=== PATIENT | female | born 1985 | race American Indian/Alaskan Native ===

== ENCOUNTER 2016-06-26 12:31 | Inpatient (IN) | payer SELFPAY ==
--- NOTE | 2016-06-26 13:01 | Emergency Department Report ---
Chief Complaint: Vaginal Bleeding Stated Complaint: CHEST PAIN/CONSTANT BLEEDING Time Seen by Provider: 06/26/16 12:56 - HPI History of Present Illness: 30-year-old -German female comes in with complaint of vaginal bleeding since 06/02/2016. Patient states she is using approximately a half a pack of tampons 9 tampons probably a day varies. Patient reports that she is passing clots and last Thursday complains of achy all over shortness of breath worse with walking upstairs left-sided chest pain off and on worse with walking. Denies any nausea vomiting as any dysuria. - Exam Vital Signs: Vital Signs 06/26/16 12:35 Temperature 97.4 F L Pulse Rate 100 H Respiratory 22 Rate Blood Pressure 160/95 O2 Sat by Pulse 100 Oximetry Physical Exam: Alert and oriented 3 cardiovascular mildly tachycardic respiratory clear to hospice and bilateral abdomen soft there is just tenderness to the left side of chest. Conjunctivae was pale palms are slightly pale. Gums are within normal limits. MSE screening note: Focused history and physical exam performed. Due to findings the following was ordered: He has been evaluated by this provider in triage. Vaginal bleeding protocol set in place EKGs done. Patient evaluated main ER ED Disposition for MSE Condition: Stable
[2016-06-26 13:21] LABS: Basophils % (Auto) 0.6 % (0.0-1.8); Hematocrit 22.1 % (30.3-42.9); Hemoglobin 6.9 gm/dl (10.1-14.3); Mean Corpuscular HGB Conc 31 % (30-34); Platelet Count 331 K/mm3 (140-440); Red Blood Count 3.79 M/mm3 (3.65-5.03); Red Cell Distribution Width 19.5 % (13.2-15.2); White Blood Count 8.7 K/mm3 (4.5-11.0)
[2016-06-26 13:31] LABS: Mean Corpuscular Hemoglobin 18 pg (28-32); Mean Corpuscular Volume 58 fl (79-97)
[2016-06-26] MEDS ORDERED: NACL 0.9% 500 ML 500 ML IV ONE ×2 (13:51→20:56)
[2016-06-26 14:20] LABS: Bacteria,Urine 1+ /HPF (Negative); Bilirubin,Urine NEG (Negative); Blood,Urine NEG (Negative); Ketones,Urine TR mg/dL (Negative); Leukocyte Esterase,Urine NEG (Negative); Mucus,Urine 2+ /HPF; Nitrite,Urine NEG (Negative)
--- NOTE | 2016-06-26 21:02 | Emergency Department Report ---
ED Female HPI - General Chief complaint: Vaginal Bleeding Stated complaint: CHEST PAIN/CONSTANT BLEEDING Time Seen by Provider: 06/26/16 12:56 Source: patient Mode of arrival: Ambulatory Limitations: No Limitations - History of Present Illness Initial comments: 30-year-old female with a past medical history of obesity, seizures, asthma, and iron deficiency anemia presents to the hospital complains of heavy vaginal bleeding since June 02. Patient using 9 tampons daily and passing clots. The last week patient has had generalized body aches, dyspnea with minimal activity exertion, intermittent left-sided sharp, aching chest pain worse with palpation and movement. Pain rated 5/10 in intensity. Pt denies calf tenderness, edema, recent travel, control use, previous PE/DVT. Patient states she takes iron tablets 3 times a day. No previous history of blood transfusion. [employer]: none - Related Data Allergies Allergy/AdvReac Type Severity Reaction Status Date / Time No Known Allergies Allergy Unverified 06/26/16 12:39 ED Review of Systems ROS: Stated complaint: CHEST PAIN/CONSTANT BLEEDING Other details as noted in HPI Comment: All other systems reviewed and negative Other: Constitutional: No fevers chills Eyes: No eye pain visual changes ENT: No ear pain or throat pain Neck: Denies pain Respiratory: Denies cough wheezing Cardiovascular: Denies palpitations, syncope GI: Denies abdominal pain, nausea, vomiting, diarrhea : Denies dysuria Musculoskeletal: Denies back pain Skin: Denies rash, lesions, erythema Neurologic: Denies headache, numbness, weakness Psychiatric: Denies suicidal ideation, hallucinations ED Past Medical Hx - Past Medical History Hx Seizures: Yes Hx Asthma: Yes Additional medical history: ANEMIA. OBESITY - Surgical History Past Surgical History?: No - Social History Smoking Status: Never Smoker Substance Use Type: Alcohol ED Physical Exam - General Limitations: No Limitations - Other Other exam information: General: No limitations, patient is alert in no acute distress Head exam: Atraumatic, normocephalic Eyes exam: Normal appearance, pupils equal reactive to light, extraocular movements intact ENT: Moist mucous membrane, normal oropharynx Neck exam: Normal inspection, full range of motion, no meningismus nontender Respiratory exam: Clear to auscultation bilateral, no wheezes, rales, crackles Cardiovascular: Normal rate and rhythm, normal heart sounds Abdomen: Soft, nondistended, and nontender, with normal bowel sounds, no rebound, or guarding Extremity: Full range of motion normal inspection no deformity, no calf tenderness or edema Back: Normal Inspection, full range of motion, no tenderness Neurologic: Alert, oriented x3, cranial nerves intact, no motor or sensory deficit Psychiatric: normal affect, normal mood Skin: Warm, dry, intact ED Course Vital Signs 06/26/16 12:35 Temperature 97.4 F L Pulse Rate 100 H Respiratory 22 Rate Blood Pressure 160/95 O2 Sat by Pulse 100 Oximetry - Consultations Consultation #1: 06/26/16 21:12 Dr Peters-Alexander building supervisor consulted. WIll evaluate ED Medical Decision Making - Lab Data Result diagrams: 06/26/16 13:04 - EKG Data -: EKG Interpreted by Me (nsr [id number] ) - EKG Data When compared to previous EKG there are: previous EKG unavailable - Medical Decision Making Patient has reproducible left-sided chest wall tenderness, lack of leg symptoms , no risk factors for PE/DVT therefore PE felt to be less likely cause of shortness of breath and chest pain. Patient has significant anemia which is likely the cause of her symptoms. Blood order to initiate transfusion, ultrasound ordered, [employer] consulted. Patient will need admission to the hospital for further treatment - Differential Diagnosis fibroids, anemia, DUB, costochondritis, PE Critical Care Time: No Critical care attestation.: If time is entered above; I have spent that time in minutes in the direct care of this critically ill patient, excluding procedure time. ED Disposition Clinical Impression: Menorrhagia, Iron (Fe) deficiency anemia, Symptomatic anemia Disposition: OP ADMITTED IP TO THIS HOSP Is pt being admited?: Yes Condition: Stable Time of Disposition: 21:03 (hosp/Dr Venegas)
[2016-06-26] MEDS ORDERED: ZOFRAN IV PRN (22:32)
[2016-06-26] MEDS ORDERED: BENADRYL IV PRN (22:32)
[2016-06-26] MEDS ORDERED: DULCOLAX PR PRN (22:32)
[2016-06-26] MEDS ORDERED: TYLENOL PO PRN (22:32)
[2016-06-26] MEDS ORDERED: MORPHINE IV PRN (22:32)
[2016-06-26] MEDS ORDERED: MILK OF MAGNESIA PO PRN (22:32)
--- NOTE | 2016-06-26 22:40 | Ultrasound Report ---
FINAL REPORT PROCEDURE: US TRANSVAGINAL TECHNIQUE: Real-time transvaginal sonography in multiple planes of the pelvis was performed with image documentation. This examination was performed without Doppler. Vascular abnormalities, including ovarian torsion, will not be detectable without Doppler evaluation. CPT 91915 HISTORY: vag bleeding, significant anemia COMPARISON: No prior studies are available for comparison. FINDINGS: UTERUS Size: 9 x 4 cm. Endometrial thickness: 10 mm. Orientation: anteverted. Cervix: Normal. Fibroids/masses: An isoechoic ill-defined lesion measuring 2.2 x 1.9 centimeters is noted in the anterior fundus. RIGHT Ovary: 3 x 2.1 x 2.2 cm. Appearance: Normal. LEFT Ovary: 4.3 x 3.5 x 4.0 cm. Appearance: A well-defined cystic lesion measuring 4 centimeters is noted. Pelvic fluid: None. Other: None. IMPRESSION: An ill-defined focal lesion measuring 2.2 x 1.9 centimeters in the uterine fundus most likely represents a fibroid. A simple appearing left ovarian cyst is noted measuring 4 centimeters.
--- NOTE | 2016-06-26 22:41 | History and Physical Report ---
History of Present Illness Date of examination: 06/26/16 History of present illness: 30-year-old woman history of menorrhagia comes emergency room complaining of shortness breath, dizziness, palpitation and chest pain. Pain is in the left chest which she describes a sharp, heart pain, intermittent in nature lasting for 25 minutes, worse with activity, intensity 5/10. Patient has had her menstrual period since June 02. She saw her doctor in the past for menorrhagia, she was given a pill which she cannot recall the name, her symptoms improved. She was also given iron pills Patient denies cough, abdominal pain, hematochezia, dysuria, frequency, focal weakness, dysarthria, fever chills, polydipsia polyuria, hot or cold intolerance , easy bruisability, or rash or bleeding from mucosal membrane, rhinorrhea, epistaxis, earache, tinnitus, blurry vision, eye discharge, anxiety, depression. Other review of systems negative PAST SURGICAL HISTORY: None SOCIAL HISTORY: Denies focal, tobacco, drugs FAMILY HISTORY: Hypertension Medications and Allergies Allergies Allergy/AdvReac Type Severity Reaction Status Date / Time No Known Allergies Allergy Verified 06/26/16 22:39 Exam - Physical Exam Narrative exam: Gen. appearance: Patient lying in bed, no apparent distress HEENT: Normocephalic, atraumatic, pupils equally round and reactive to light, extraocular movement intact, and no sclericterus,. No JVD or thyromegaly or nodule,neck supple, no carotid bruit ,mucous membranes moist, no exudate or erythema Heart: S1, S2, regular rate and rhythm Lungs: Clear to auscultation bilaterally, breathing comfortable Abdomen: Positive bowel sounds, nontender, nondistended, no organomegaly Extremity: No edema, cyanosis, clubbing Skin: No rash, nodules, warm, dry Neuro: Oriented 3, cranial nerves II-12 intact, speech is fluent, motor and sensory intact - Constitutional Vitals: Temp Pulse Resp BP Pulse Ox 98.0 F 92 H 18 143/88 100 06/26/16 20:56 06/26/16 20:56 06/26/16 20:56 06/26/16 20:56 06/26/16 20:56 Results - Labs CBC & Chem 7: 06/26/16 13:04 Labs: Abnormal lab results 06/26/16 06/26/16 Range/Units 13:04 13:04 Hgb 6.9 L (10.1-14.3) gm/dl Hct 22.1 L (30.3-42.9) % MCV 58 L (79-97) fl MCH 18 L (28-32) pg RDW 19.5 H (13.2-15.2) % Crossmatch See Detail Assessment and Plan Pelvic and transvaginal ultrasound reviewed Acute on chronic menorrhagia Symptomatic anemia Admit to medicine Transfuse packed red Blood cells, check cardiac enzymes Premedicate prior to transfusion, consult [employer] start DVT prophylaxis
--- NOTE | 2016-06-26 22:44 | Ultrasound Report ---
FINAL REPORT PROCEDURE: US PELVIC COMPLETE TECHNIQUE: Real-time transabdominal sonography in multiple planes of pelvis was performed with image documentation. This examination was performed without Doppler. Vascular abnormalities, including ovarian torsion, will not be detectable without Doppler evaluation. CPT 46540 HISTORY: vag bleeding, significant anemia COMPARISON: No prior studies are available for comparison. FINDINGS: UTERUS Size: 9 x 4 cm. Endometrial thickness: 10 mm. Orientation: anteverted. Cervix: Normal. Fibroids/masses: An isoechoic ill-defined lesion measuring 2.2 x 1.9 centimeters is noted in the anterior fundus. RIGHT Ovary: 3 x 2.1 x 2.2 cm. Appearance: Normal. LEFT Ovary: 4.3 x 3.5 x 4.0 cm. Appearance: A well-defined cystic lesion measuring 4 centimeters is noted. Pelvic fluid: None. Other: None. IMPRESSION: IMPRESSION: An ill-defined focal lesion measuring 2.2 x 1.9 centimeters in the uterine fundus most likely represents a fibroid. A simple appearing left ovarian cyst is noted measuring 4 centimeters.
[2016-06-26] MEDS ORDERED: NACL 0.9% 500 ML 500 ML ONE (23:20)
[2016-06-26 23:55] LABS: Creatine Kinase MB 1.7 ng/mL (0.0-4.0)
--- NOTE | 2016-06-27 07:57 | Admit Criteria Form ---
Admission Criteria Documentation: OBSTETRIC AND GYNECOLOGIC DISEASE GRG Clinical Indications for Admission to Inpatient Care (Place 'X' for any and all applicable criteria): Hospital admission is needed for appropriate care of the patient because of ANY ONE of the following (1)(2)(3): [ ]I. Hemodynamic instability, as indicated by ALL of the following (1)(2)(3)( 4)(5): [ ]a) Vital signs or other findings not as expected for chronic patient condition or baseline [ ]b) Instability indicated by ANY ONE of the following: [ ]i) Hypotension [ ]ii) Symptomatic tachycardia unresponsive to treatment (eg, analgesia, fluids, sedation as indicated) [ ]iii) Inadequate perfusion indicated by ANY ONE of the following: [ ]A. Lactic acidosis (greater than 2 mmol/ L) [ ]B. New abnormal capillary refill ( greater than 3 seconds) [ ]C. Reduced urine output [ ]D. New altered mental status [ ]iv) Orthostatic vital sign changes unresponsive to treatment (eg, fluids) [ ]v) Multiple IV fluid boluses required to maintain adequate blood pressure or perfusion [ ]vi) IV inotropic or vasopressor medication required to maintain adequate blood pressure or perfusion [ ]II. Obstetric infection requiring hospitalization indicated by ANY ONE of the following(13)(14): [ ]a) Chorioamnionitis [ ]b) Endometritis (except mild endometritis) [ ]c) Pelvic abscess [ ]d) Peritonitis [ ]e) Septic pelvic thrombophlebitis [ ]III. Amniotic fluid or pulmonary embolism(4)(5)(6) [ ]IV. Suspected peritonitis or ectopic requiring monitoring beyond scope of 24 hours or observation care(7)(8) [ ]V. compromise requiring hospitalization indicated by ALL of the following(9)(10): [ ]a) compromise indicated by ANY ONE of the following(11): [ ]i) Abnormal heart rate monitoring [ ]ii) Abnormal contraction stress test [ ]iii) Abnormal biophysical profile [ ]iv) Abnormal Doppler flow in vessels (ie, Doppler velocimetry) (12) [ ]b) Persistence of compromise indicators during evaluation and observation monitoring [ ]. Ovarian hyperstimulation syndrome requiring hospitalization[A] indicated by ALL of the following(15): [ ]a) Recent ovarian stimulation with gonadotropins, or evidence on ultrasound of spontaneous emergence of large number of ovarian follicles [ ]b) Evidence of severe ovarian hyperstimulation syndrome indicated by ANY ONE of the following: [ ]i) Abdominal pain unresponsive to oral therapy [ ]ii) Acute respiratory distress syndrome [ ]iii) Electrolyte imbalance ( eg, hyponatremia, hyperkalemia) [ ]iv) Elevated liver enzymes [ ]v) Evidence of thromboembolism [ ]vi) Hemoconcentration (hematocrit greater than 45 % (0.45)) [ ]vii) Inability to maintain oral intake adequate to prevent hemoconcentration [ ]viii) Marked hypotension from baseline (eg, SBP 20 mmHg below patients usual pressure) [ ]ix) Oliguria or anuria [ ]x) Ovarian torsion [ ]xi) Pleural or pericardial effusion on x-ray or echocardiogram [ ]xii) Rapid increase in serum creatinine to greater than 1.2 mg/dL (106 micromoles/L) or creatinine clearance less than 50 mL/min/1.73m2 (0.84 mL/ sec/1.73m2) [ ]xiii) Ruptured ovarian cyst with hemorrhage [ ]xiv) Severe abdominal pain or peritoneal signs [ ]xv) Tense ascites that cannot be managed with paracentesis in outpatient setting [ ]VII.Pelvic infection requiring hospitalization indicated by ANY ONE of the following (16): [ ]a) Outpatient treatment has failed or is not appropriate (eg, inpatient monitoring required) [ ]b) Pelvic abscess [ ]c) Surgical emergency cannot be excluded (eg, rigid abdomen) [ ]d) Vomiting precluding outpatient and observation care management VIII. loss complications requiring inpatient medical treatment indicated by ANY ONE of the following (4)(7)(9): [ ]a) Fever [ ]b) Peritonitis [ ]c) Sepsis [ ]d) Severe abdominal pain [ ]IX. or patient requiring monitoring for severe heart failure, pulmonary disease, or other comorbid condition (eg, peripartum cardiomyopathy) (4)(17) [ ]X. patient with rupture of membranes requiring hospitalization indicated by ANY ONE of the following: [ ]a) Chorioamnionitis, cloudy amniotic fluid, or other evidence of infection [ ]b) compromise or other need for monitoring (11) [ ]c) Gestation longer than 23 weeks and ANY ONE of the following: [ ]i) Abnormal (noncephalic) presentation [ ]ii) Inadequate home environment (eg, home too far from hospital, unable to rapidly return to hospital) [ ]d) Temperature greater than 100.4 degrees F (38 degrees C)( oral) [ ]e) Threatened labor requiring monitoring beyond scope (eg, over 24 hours) of observation Care [ ] XI. complications, including severe lacerations, infections, or retained placenta (19) [X ] XII.Uterine bleeding with high-risk features indicated by ANY ONE of the following (4): [ ]a) Active major hemorrhage (eg, hemorrhage) [ ]b) Coagulopathy with active bleeding [ ]c) Gestational trophoblastic disease (eg, molar ) (20 ) [ ]d) (longer than 23 weeks) and ANY ONE of the following: [ ]i) Pain [ ]ii) Placental abruption, known or suspected [ ]iii) Placenta accrete, known or suspected(21) [ ]iv) Placenta previa, known or suspected [ ]v) Vasa previa [ X]e) Severe anemia [ ]XIII. Obstetric or Gynecologic Disease, condition or symptom for which ANY ONE of the following: [ ]a) Emergency and observation care have failed or are not considered appropriate ( Also use General Criteria: Observation Care Criteria as appropriate) [ ]b) Presence of a General Admission Criteria or Pediatric General Admission Criteria The original [facility] Touch EMR content created by [facility] has been revised. The portions of the content which have been revised are identified through the use of italic text or in bold, and [facility] has neither reviewed nor approved the modified material.All other unmodified content is copyright [facility]. Please see references footnoted in the original [facility] edition 2016 Admission Criteria Met: Yes
[2016-06-27 08:21] LABS: Hematocrit 29.8 % (30.3-42.9); Hemoglobin 9.5 gm/dl (10.1-14.3); Mean Corpuscular HGB Conc 32 % (30-34); Mean Corpuscular Hemoglobin 21 pg (28-32); Mean Corpuscular Volume 64 fl (79-97); Platelet Count 303 K/mm3 (140-440); Red Blood Count 4.63 M/mm3 (3.65-5.03); White Blood Count 8.4 K/mm3 (4.5-11.0)
[2016-06-27 08:37] LABS: Anion Gap 16 mmol/L; Blood Urea Nitrogen 10 mg/dL (7-17); Calcium 8.7 mg/dL (8.4-10.2); Carbon Dioxide 22 mmol/L (22-30); Chloride 101.9 mmol/L (98-107); Glucose 114 mg/dL (65-100); Potassium 3.8 mmol/L (3.6-5.0); Sodium 136 mmol/L (137-145)
[2016-06-27 09:28] LABS: Anisocytosis 3+; Basophils % (Manual) 0 % (0.0-1.8); Blastocytes % (Manual) 0 %; Microcytosis 1+
[2016-06-27 09:29] LABS: Diff Status Complete; Hypochromasia 2+
[2016-06-27 09:30] LABS: Polychromasia 1+
[2016-06-27 09:31] LABS: Target Cells 1+
--- NOTE | 2016-06-27 09:43 | Consultation ---
History of Present Illness - Reason for Consult Consult date: 06/27/16 episode of menorrhagia leading to symptomatic anemia - History of Present Illness 30 yo G0PO who presented to ER with symptomatic anemia following episode of prolonged bleeding. Pt states this has happened in past and was seen at [facility]. Last pap approx 3 years ago-normal. Pt denies any other medical illnesses Past History Past Medical History: No medical history Medications and Allergies Allergies Allergy/AdvReac Type Severity Reaction Status Date / Time No Known Allergies Allergy Verified 06/26/16 22:39 Active Meds: Active Medications Acetaminophen (Tylenol) 325 mg PO Q6H PRN PRN Reason: Fever Last Admin: 06/27/16 01:57 Dose: 325 mg Bisacodyl (Dulcolax) 10 mg KS QDAY PRN PRN Reason: Constipation unrelieved by MOM Diphenhydramine HCl (Benadryl) 25 mg IV Q6H PRN PRN Reason: Itching Last Admin: 06/27/16 02:32 Dose: 25 mg Magnesium Hydroxide (Milk Of Magnesia) 30 ml PO Q4H PRN PRN Reason: Constipation Morphine Sulfate (Morphine) 2 mg IV Q4H PRN PRN Reason: Pain, Moderate (4-6) Ondansetron HCl (Zofran) 4 mg IV Q8H PRN PRN Reason: N/V unrelieved by Reglan Review of Systems Constitutional: fatigue, weakness Genitourinary Female: menorrhagia Menstruation: currently menstrual, period heavy, menses 8 or > days, menses variable Exam - Constitutional Vitals: Temp Pulse Resp BP Pulse Ox 98.2 F 99 H 20 103/58 99 06/27/16 08:00 06/27/16 08:00 06/27/16 08:00 06/27/16 08:00 06/27/16 08:00 General appearance: Present: no acute distress, well-nourished - Respiratory Respiratory effort: normal Respiratory: bilateral: CTA - Cardiovascular Rhythm: regular Heart Sounds: Present: S1 & S2 - Abdominal General gastrointestinal: Present: soft, non-tender Female genitourinary: Present: deferred - Psychiatric Psychiatric: appropriate mood/affect, intact judgment & insight, cooperative - Neurologic Neurologic: CNII-XII intact Results - Labs CBC & Chem 7: 06/27/16 08:04 06/27/16 08:04 Labs: Abnormal lab results 06/27/16 06/27/16 Range/Units 08:04 08:04 Hgb 9.5 L (10.1-14.3) gm/dl Hct 29.8 L D (30.3-42.9) % MCV 64 L D (79-97) fl MCH 21 L (28-32) pg RDW 27.0 H (13.2-15.2) % Sodium 136 L (137-145) mmol/L Glucose 114 H (65-100) mg/dL Assessment and Plan Pelvic sono reviewed- shows evidence of a fundal fibroid- patient made aware. Also shows evidence of ovarian cyst which is most likely functional. Patient is s/p 2 units of PRBC's and is currently asymptomatic. Will d/c home on iron, Lysteda- recomend f/u at [facility] if patient remains uninsured. patient will benefit from evaluation for PCOS in future.
--- NOTE | 2016-06-27 09:56 | Discharge Summary ---
Providers - Providers Date of Admission: 06/26/16 22:32 Date of discharge: 06/27/16 Attending physician: ROMEO RAINES Primary care physician: STEPAN POST MD Hospitalization Condition: Good Disposition: DISCHARGED TO HOME OR SELFCARE - Discharge Diagnoses (1) Abnormal uterine bleeding (AUB) Status: Acute (2) Anemia due to chronic blood loss Status: Acute (3) Menorrhagia Status: Acute Qualifiers: Menorrahagia type: M Core Measure Documentation - Palliative Care Palliative Care/ Comfort Measures: Not Applicable Exam - Constitutional Vitals: Temp Pulse Resp BP Pulse Ox 98.2 F 99 H 20 103/58 99 06/27/16 08:00 06/27/16 08:00 06/27/16 08:00 06/27/16 08:00 06/27/16 08:00 Plan Activity: no restrictions Diet: low fat, low cholesterol Additional Instructions: 1.Follow up with Gynecology at [facility] in 1 week. Follow up with: PRIMARY CARE, [Primary Care Provider] - 7 Days Prescriptions: Ferrous Sulfate [Feosol 325 MG tab] 325 mg PO TID #90 tablet Tranexamic Acid [Lysteda] 1,300 mg PO TID #15 tab
[2016-06-27 13:17] VITALS: BP 126/62
== END 2016-06-27 15:02 | disposition home or self-care (01) | DRG 760 ==
LOC: ED 12:31 → 3A 22:32
PROVIDERS: ADMIT Internal Medicine; ATTEND Internal Medicine
PROC: 30233N1 Transfusion of Nonautologous Red Blood Cells into Peripheral Vein, Percutaneous Approach (ICD-10-PCS; principal; 2016-06-26)
DX: N93.9 Abnormal uterine and vaginal bleeding, unspecified (principal); Z68.43 Body mass index [BMI] 50.0-59.9, adult; D50.0 Iron deficiency anemia secondary to blood loss (chronic); N92.0 Excessive and frequent menstruation with regular cycle; E66.9 Obesity, unspecified; D25.9 Leiomyoma of uterus, unspecified; N83.209 Unspecified ovarian cyst, unspecified side; Z82.49 Family history of ischemic heart disease and other diseases of the circulatory system
CPT/HCPCS: 36415; 36430; 76830; 76856; 80048; 81001; 82550; 82553; 82962; 84484; 84702; 85007; 85025; 86850; 86900; 86901; 86920; 93005; 93010; J1200; J7040; P9016